=== PATIENT | female | born 1990 | race Two or more races ===

== ENCOUNTER 2017-11-06 10:38 | Emergency (ER) | payer OTHER ==
[~2017-11-06] VITALS: Ht 152.4 cm; Wt 71.0 kg
[2017-11-06 11:36] LABS: ALBUMIN 5.4 g/dL (3.2-4.8); CHLORIDE 99 mEq/L (99-109); POTASSIUM 4.1 mEq/L (3.7-5.4); SODIUM 136 mEq/L (136-147)
[2017-11-06 11:39] LABS: GLUCOSE 119 mg/dL (70-99); TOTAL PROTEIN 9.4 g/dL (6.4-8.3)
[2017-11-06 11:41] LABS: TOTAL BILIRUBIN 0.5 mg/dL (0.0-1.0)
[2017-11-06 11:42] LABS: ALKALINE PHOSPHATASE 80 IU/L (3-129); CREATININE 0.7 mg/dL (0.6-1.3)
[2017-11-06 11:43] LABS: UREA NITROGEN (BUN) 5 mg/dL (9-23)
[2017-11-06 11:44] LABS: AST (GOT) 35 IU/L (2-34)
[2017-11-06 11:45] LABS: ALT (GPT) 42 IU/L (3-49)
[2017-11-06 11:46] LABS: GFR ESTIMATE (CALCULATED) > 59 mL/min/; LIPASE 31 U/L (1.0-51.0)
[2017-11-06 11:54] LABS: HEMATOCRIT 46.4 % (36.0-46.0); HEMOGLOBIN 15.6 G/DL (11.9-15.5); MCH 28.4 PG (29.0-34.0); MCHC 33.6 G/DL (30.0-36.0); MCV 84.5 FL (83-99); PLATELET COUNT 199 K/uL (156-360); RBC DIS.WIDTH-CV 13.2 % (11.8-14.6); RBC DIS.WIDTH-SD 40.6 % (39-53); RED BLOOD COUNT 5.49 M/uL (3.80-5.20); WHITE BLOOD COUNT 14.7 K/uL (4.1-10.2)
[2017-11-06 11:54] LABS: QUANTITATIVE HCG < 4.0 MIU/ML
[2017-11-06 11:54] LABS: APPEARANCE CLEAR ((CLEAR)); BILIRUBIN NEGATIVE; BLOOD NEGATIVE; COLOR YELLOW ((YELLOW)); GLUCOSE (STRIP) NEGATIVE; KETONES 80; LEUKOCYTES NEGATIVE; NITRITE NEGATIVE; PROTEIN (STRIP) 100; SPECIFIC GRAVITY 1.019 (1.000-1.030); UROBILINOGEN 0.2 MG/DL (0.2-1.0)
[2017-11-06 11:56] LABS: BACTERIA NONE SEEN /HPF; EPITHELIAL CELLS 1+ /HPF; MUCUS TRACE /LPF; RED BLOOD CELLS 0-5 /HPF (0-5); UCUL ADDED? NO; WHITE BLOOD CELLS 0-5 /HPF (0-5)
[2017-11-06] MEDS ORDERED: ZOFRAN ODT4 MG PO (17:00)
[2017-11-06 17:20] VITALS: BP 180/94
== END 2017-11-06 17:20 | disposition home or self-care (01) ==
LOC: EME 10:38 → RME 10:38
DX: R11.2 Nausea with vomiting, unspecified (principal); R10.11 Right upper quadrant pain; F17.200 Nicotine dependence, unspecified, uncomplicated
CPT/HCPCS: 76705; 80053; 81003; 83690; 84702; 85027; 99281; 99285; J2405